=== PATIENT | female | born 1965 | race Caucasian/White ===

== ENCOUNTER → 2020-05-23 | Outpatient (CLI) | payer OTHER, MEDICARE | END | disposition home or self-care (01) | LOC: HBOWC 08:39 | PROVIDERS: ATTEND Emergency Medicine | DX: I89.0 Lymphedema, not elsewhere classified (principal); M10.9 Gout, unspecified; K21.9 Gastro-esophageal reflux disease without esophagitis; Z85.038 Personal history of other malignant neoplasm of large intestine; Z90.710 Acquired absence of both cervix and uterus; Z87.891 Personal history of nicotine dependence | CPT/HCPCS: 87070; 87077; 87186; 87205; G0463 ==

== ENCOUNTER → 2020-05-30 | Outpatient (CLI) | payer OTHER, MEDICARE | END | disposition home or self-care (01) | LOC: HBOWC 09:02 | PROVIDERS: ATTEND Emergency Medicine | DX: I89.0 Lymphedema, not elsewhere classified (principal); M10.9 Gout, unspecified; K21.9 Gastro-esophageal reflux disease without esophagitis; Z85.038 Personal history of other malignant neoplasm of large intestine; Z90.710 Acquired absence of both cervix and uterus; Z87.891 Personal history of nicotine dependence ==

== ENCOUNTER → 2020-06-20 | Outpatient (CLI) | payer OTHER, MEDICARE | END | disposition home or self-care (01) | LOC: HBOWC 09:12 | PROVIDERS: ATTEND Emergency Medicine | DX: I89.0 Lymphedema, not elsewhere classified (principal); L03.116 Cellulitis of left lower limb; M10.9 Gout, unspecified; K21.9 Gastro-esophageal reflux disease without esophagitis; M06.9 Rheumatoid arthritis, unspecified; E66.9 Obesity, unspecified; Z68.43 Body mass index [BMI] 50.0-59.9, adult; Z85.038 Personal history of other malignant neoplasm of large intestine; Z90.710 Acquired absence of both cervix and uterus; Z87.891 Personal history of nicotine dependence | CPT/HCPCS: 11042; 11045 ==

== ENCOUNTER → 2020-07-04 | Outpatient (CLI) | payer OTHER, MEDICARE | END | disposition home or self-care (01) | LOC: HBOWC 08:45 | PROVIDERS: ATTEND Emergency Medicine | DX: I89.0 Lymphedema, not elsewhere classified (principal); M10.9 Gout, unspecified; K21.9 Gastro-esophageal reflux disease without esophagitis; M06.9 Rheumatoid arthritis, unspecified; E66.9 Obesity, unspecified; Z68.43 Body mass index [BMI] 50.0-59.9, adult; Z85.038 Personal history of other malignant neoplasm of large intestine; Z90.710 Acquired absence of both cervix and uterus; Z87.891 Personal history of nicotine dependence ==

== ENCOUNTER → 2021-12-21 | Outpatient (CLI) | payer OTHER, MEDICARE | END | disposition home or self-care (01) | LOC: HBOWC 09:56 | PROVIDERS: ATTEND Podiatrist | DX: I89.0 Lymphedema, not elsewhere classified (principal); L03.115 Cellulitis of right lower limb; M10.9 Gout, unspecified; K21.9 Gastro-esophageal reflux disease without esophagitis; M06.9 Rheumatoid arthritis, unspecified; E66.9 Obesity, unspecified; Z85.038 Personal history of other malignant neoplasm of large intestine; Z90.710 Acquired absence of both cervix and uterus; Z87.891 Personal history of nicotine dependence; Z68.29 Body mass index [BMI] 29.0-29.9, adult | CPT/HCPCS: 99205; G0463 ==